=== PATIENT | female | born 1995 | race Caucasian/White ===

== ENCOUNTER 2018-05-14 17:14 | Emergency (ER) | payer OTHER ==
[2018-05-14 17:28] VITALS: BP 115/74; PULSE 86; TEMP 98.7; BMI 37.4
[2018-05-14] MEDS ORDERED: KETOROLAC TROMETHAMINE 60 MG/2 ML VIAL IM ONE (18:06)
--- NOTE | 2018-05-14 18:07 | PDOC ---
History of Present Illness - General Chief Complaint: Cold Symptoms Stated Complaint: DIFFICULTY BREATHING Time Seen by Provider: 05/14/18 17:57 History Source: Patient Exam Limitations: No Limitations - History of Present Illness Initial Comments: 05/14/18 18:05 22 yr obese female with c/o headache "migraine " since 3am. neg nausea or vomiting. Pt also with sore throat. Pt states this headache is similair to migraines. Timing/Duration: other (since 3am ) Severity: mild Past History - Past Medical History Allergies/Adverse Reactions: Allergies Allergy/AdvReac Type Severity Reaction Status Date / Time shellfish derived Allergy Verified 05/14/18 17:58 Home Medications: Ambulatory Orders No Home Medications 0 dose .ROUTE UTDICT 04/25/12 Naproxen [Naprosyn] 500 mg PO BID PRN #14 tablet 05/14/18 COPD: No CHF: No - Suicide/Smoking/Psychosocial Hx Smoking Status: No Smoking History: Never smoked Have you smoked in the past 12 months: No Number of Cigarettes Smoked Daily: 0 Information on smoking cessation initiated: No Hx Alcohol Use: No Drug/Substance Use Hx: No Substance Use Type: None *Physical Exam - Vital Signs Last Vital Signs Temp Pulse Resp BP Pulse Ox 98.7 F 86 16 115/74 100 05/14/18 17:20 05/14/18 17:20 05/14/18 17:20 05/14/18 17:20 05/14/18 17:20 - Physical Exam General Appearance: Yes: Nourished, Appropriately Dressed HEENT: positive: EOMI, STORMY, Pharyngeal Erythema. negative: Tonsillar Exudate, Tonsillar Erythema Neck: positive: Supple. negative: Tender Respiratory/Chest: positive: Lungs Clear, Normal Breath Sounds. negative: Chest Tender Cardiovascular: positive: Regular Rhythm, Regular Rate Gastrointestinal/Abdominal: positive: Normal Bowel Sounds, Soft. negative: Tender Musculoskeletal: positive: Normal Inspection Extremity: positive: Normal Capillary Refill, Normal Inspection, Normal Range of Motion Integumentary: positive: Normal Color, Dry, Warm (neg nystagmus, neg dizzyness, neg photo /phonbia) Neurologic: positive: Fully Oriented, Alert, Normal Mood/Affect, Normal Response , Motor Strength 5/5, Other (steady gait ) Medical Decision Making - Medical Decision Making 05/14/18 18:14 cc: headache frontal behind both eyes since 3am, pt states she has been up late the past 48hrs not getting enough sleep, hasd to leae work due to headache and trouble concentrating neg nausea or vomiting neg fever neg neck pain no meds taken RADIATION THERAPIST will give toradol now check for rapid strep *DC/Admit/Observation/Transfer Diagnosis at time of Disposition: Migraine Qualifiers: Migraine type: unspecified Status migrainosus presence: without status migrainosus Intractability: intractable Qualified Code(s): G43.919 - Migraine, unspecified, intractable, without status migrainosus - Discharge Dispostion Disposition: HOME Condition at time of disposition: Good - Prescriptions Prescriptions: Naproxen [Naprosyn] 500 mg PO BID PRN #14 tablet PRN Reason: Headache - Referrals Referrals: Arcelia Reno MD [Primary Care Provider] - - Patient Instructions Additional Instructions: rest in dark quiet spot drink at least 2 liters of water a day to stay hydrated take naprosyn at home for headache as directed follow with the neurologist or your primary care doctor for follow up Return to ER for any worsening symptoms - Post Discharge Activity
[2018-05-14] MEDS ORDERED: KETOROLAC TROMETHAMINE 60 MG/2 ML VIAL ONE (18:10)
[2018-05-14 18:38] LABS: THROAT:GRP A STREP ANTIGEN Negative
== END 2018-05-14 19:22 | disposition home or self-care (01) ==
LOC: JERFT 17:14
PROC: 3E0233Z Introduction of Anti-inflammatory into Muscle, Percutaneous Approach (ICD-10-PCS; principal; 2018-05-14)
DX: G43.919 Migraine, unspecified, intractable, without status migrainosus (principal)
CPT/HCPCS: 87070; 87880; 96372; 99281-25